=== PATIENT | male | born 1980 | race Hispanic/Latino ===

== ENCOUNTER 2024-08-15 16:42 | Emergency (ER) | payer SELFPAY ==
[~2024-08-15] VITALS: Ht 160 cm; Wt 61.2 kg
[2024-08-15] MEDS: PANTOPrazole 40 MG/VIAL IVP ONE (17:52)
[2024-08-15] MEDS: 0.9%NACL 1000ML 1,000 ML IV ONE (17:52)
[2024-08-15] MEDS: ondanSETRON 4MG INJ IVP ONE (17:52)
[2024-08-15 17:55] LABS: BASOPHILS # (AUTO) 0.06 K/uL (0.00-0.20); BASOPHILS % (AUTO) 0.5 % (0.0-5.0); EOSINOPHILS # (AUTO) 0.03 K/uL (0.00-0.70); EOSINOPHILS % (AUTO) 0.3 % (0.0-8.0); HEMATOCRIT 50.3 % (42-54); IMMATURE GRANULOCYTE ABSOLUTE 0.05 K/uL (0-1); LYMPHOCYTES # (AUTO) 0.4 K/uL (1.0-4.8); LYMPHOCYTES % (AUTO) 3.3 % (21.0-51.0); MEAN CORPUSCULAR HEMOGLOBIN 35.1 pg (27.0-33.0); MEAN CORPUSCULAR HGB CONC 35.4 g/dL (32.0-36.0); MEAN CORPUSCULAR VOLUME 99.2 fL (79-99); MONOCYTES # (AUTO) 0.6 K/uL (0.1-1.0); MONOCYTES % (AUTO) 4.9 % (3.0-13.0); NEUTROPHILS # (AUTO) 10.6 K/uL (1.8-7.7); NEUTROPHILS % (AUTO) 90.6 % (40.0-77.0); PLATELET COUNT (AUTO) 208 K/uL (130-400); RED BLOOD CELL COUNT(AUTO) 5.07 MIL/uL (4.50-6.20); RED CELL DISTRIBUTION WIDTH 13.6 % (11.0-15.5); WHITE BLOOD COUNT (AUTO) 11.7 K/uL (4.8-10.8)
[2024-08-15 18:07] LABS: CREATININE 0.8 mg/dL (0.5-1.3); POTASSIUM 3.7 mmol/L (3.5-5.1)
[2024-08-15 19:00] LABS: APPEARANCE,URINE CLEAR (CLEAR); BILIRUBIN,URINE NEGATIVE (NEGATIVE); COLOR,URINE COLORLESS (YELLOW); GLUCOSE, URINE (UA) NEGATIVE (NEGATIVE); KETONES,URINE 10 mg/dL (NEGATIVE); LEUKOCYTE ESTERASE ,URINE NEGATIVE Leu/uL (NEGATIVE); NITRATE,URINE NEGATIVE (NEGATIVE); OCCULT BLOOD,URINE NEGATIVE (NEGATIVE); PH,URINE 6.5 (5.0-8.0); PROTEIN,URINE NEGATIVE (NEGATIVE); UROBILINOGEN,URINE 0.2 mg/dL (0.2-1.0)
[2024-08-15 19:05] LABS: ADD UA MICROSCOPIC NO
[2024-08-15 19:18] LABS: ALBUMIN 4.3 g/dL (3.5-5.0); BILIRUBIN,DIRECT 0.2 mg/dL (0.0-0.3); TOTAL PROTEIN, SERUM 8.1 g/dL (6.0-8.3)
[2024-08-15 19:30] VITALS: BP 132/76; PULSE 80; RESP 18; TEMP 98.6; O2SAT 97
[2024-08-15] MEDS ORDERED: ONDA-243 PO (19:31)
[2024-08-15] MEDS ORDERED: DICY20TA2 PO (19:31)
[2024-08-15] MEDS ORDERED: PANT20TA18 PO (19:31)
== END 2024-08-15 19:48 | disposition home or self-care (01) ==
LOC: EDH 16:42
DX: K52.9 Noninfective gastroenteritis and colitis, unspecified (principal); E87.8 Other disorders of electrolyte and fluid balance, not elsewhere classified; R11.2 Nausea with vomiting, unspecified; R50.9 Fever, unspecified
CPT/HCPCS: 99284; 96374; 96361; 96375; 80076; 80048; 83690; 85025; 81003; 36415; J7030; J2405; J2470